=== PATIENT | male | born 1960 | race Caucasian/White ===

== ENCOUNTER 2021-01-06 17:35 | Inpatient (IN) ==
[2021-01-06] MEDS ORDERED: 0.9 % Sodium Chloride 500 ML IVC ONE (18:07)
[2021-01-06] MEDS ORDERED: 0.9 % Sodium Chloride 500 ML ONE (18:08)
[2021-01-06 18:26] LABS: Basophils % 0.5 %; Eosinophils # 0.1 K/mcL (0.0-0.6); Eosinophils % 1.2 %; Hematocrit 46.3 % (37.5-50.1); Hemoglobin 16.8 g/dL (12.9-16.9); Immature Granulocytes % 0.9 % (0-4); Lymphocytes # 1.1 K/mcL (0.6-4.6); Lymphocytes % 16.5 %; Mean Corpuscular HGB Conc 36.3 g/dL (31.6-35.5); Mean Corpuscular Hemoglobin 29.2 pg (28.0-33.3); Mean Corpuscular Volume 80.4 fL (83.0-100.0); Mean Platelet Volume 10.8 fL (9.4-12.4); Monocytes # 0.5 K/mcL (0.0-1.3); Monocytes % 7.5 %; Neutrophils # 4.9 K/mcL (1.6-8.9); Nucleated Red Blood Cells 0.3 /100 WBC (0); Platelet Count 141 K/mcL (140-400); Red Blood Count 5.76 M/mcL (4.19-5.50); Red Cell Distribution Width 13.5 % (11.5-14.5); Segmented Neutrophils % 73.4 %; White Blood Count 6.7 K/mcL (4.3-11.1)
[2021-01-06 18:50] LABS: VBG HCO3 19 mEq/L (21-27); VBG PCO2 30 mmHg (41-51); VBG PH 7.41 pH Units (7.32-7.42); VBG PO2 46 mmHg (25-50)
[2021-01-06 18:57] LABS: Alanine Aminotransferase 152 Units/L (7-52); Albumin 3.8 g/dL (3.5-5.7); Albumin/Globulin Ratio 1.3 (1.1-2.2); Alkaline Phosphatase 425 Units/L (34-104); Aspartate Amino Transferase 144 Units/L (13-39); BUN/Creatinine Ratio 31 (6-26); Bilirubin,Direct 0.3 mg/dL (0.0-0.2); Bilirubin,Total 1.3 mg/dL (0.3-1.0); Blood Urea Nitrogen 26 mg/dL (6-20); Calcium 9.4 mg/dL (8.6-10.3); Carbon Dioxide 20 mEq/L (23-29); Chloride 91 mEq/L (98-107); Globulin 2.9 g/dL (2.4-3.5); Glucose 113 mg/dL (70-105); Magnesium 2.1 mg/dL (1.6-2.6); Osmolality,Calculated 256 (280-300); Sodium 120 mEq/L (136-145); Total Protein 6.7 g/dL (6.4-8.9); Troponin I 0.08 ng/mL (< 0.04); eGFR For African Americans > 60 (> 60); eGFR For Non-African Americans > 60 (> 60)
[2021-01-06] MEDS ORDERED: Piperacillin/Tazobactam 3.375 GM in Water for inj. (sterile) 20 ML IVP ONE (19:16)
[2021-01-06] MEDS ORDERED: Isovue-370 500 ML BOTTLE IVP ONE (19:17)
[2021-01-06] MEDS ORDERED: Vancomycin 1,250 MG/262.5 ML IV.SOLN IVPB ONE (20:00)
[2021-01-06 20:02] LABS: Influenza A PCR Negative (Negative); Influenza B PCR Negative (Negative); Resp. Syncytial Virus PCR Negative (Negative)
[2021-01-06 20:03] LABS: SARS-CoV-2 by PCR (In House) Negative (Negative)
[2021-01-06 20:59] LABS: Bacteria,Urine Few per hpf (None-Few); Bilirubin,Urine Negative (Negative); Blood,Urine Negative (Negative); Clarity,Urine Clear (Clear); Color,Urine Yellow (Yellow); Glucose,Urine (UA) Normal (Normal); Hyaline Casts,Urine Moderate per lpf (None Seen); Ketones,Urine Trace mg/dL (Negative); Leukocyte Esterase,Urine Negative (Negative); Mucus,Urine Few per lpf (None-Few); Nitrite,Urine Negative (Negative); PH,Urine 5.5 pH Units (5.0-8.0); Protein,Urine 30 mg/dL (Neg-Trace); RBC,Urine 0-3 per hpf (0-3); Specific Gravity,Urine 1.029 (1.010-1.025); Squamous Epithelial Cell,Urine Few per hpf (None-Few); Urobilinogen,Urine Normal (Normal); WBC,Urine 0-3 per hpf (0-3)
[2021-01-06 21:02] LABS: Sodium, Urine 62.3 mEq/L
[2021-01-07] MEDS ORDERED: 0.9 % Sodium Chloride 500 ML IVC ONE (00:05)
[2021-01-07] MEDS: *HR* OxyCODONE Immed Rel 5 MG TABLET PO PRN ×3 (00:31→17:53)
[2021-01-07] MEDS: 0.9 % Sodium Chloride 1,000 ML IVC SCH ×3 (00:31→13:51)
[2021-01-07] MEDS ORDERED: Ondansetron 4 MG/2 ML VIAL IVP PRN (07:21)
[2021-01-07] MEDS ORDERED: Naloxone 0.4 MG/ML INJ IVP PRN (07:21)
[2021-01-07] MEDS ORDERED: Ipratropium/Albuterol Neb 3 ML IH PRN (07:24)
[2021-01-07 08:29] LABS: Troponin I 0.07 ng/mL (< 0.04)
[2021-01-07 08:38] LABS: BUN/Creatinine Ratio 27 (6-26); Blood Urea Nitrogen 18 mg/dL (6-20); Calcium 8.8 mg/dL (8.6-10.3); Carbon Dioxide 21 mEq/L (23-29); Chloride 95 mEq/L (98-107); Glucose 87 mg/dL (70-105); Osmolality,Calculated 259 (280-300); Potassium 4.6 mEq/L (3.5-5.1); Sodium 124 mEq/L (136-145); eGFR For African Americans > 60 (> 60); eGFR For Non-African Americans > 60 (> 60)
[2021-01-07] MEDS: *HR* LORazepam 0.5 MG TABLET PO PRN ×2 (11:04→22:00)
[2021-01-07] MEDS: levoFLOXacin 750 MG/150 ML 750 MG/150 ML BAG IVPB SCH (11:05)
[2021-01-07] MEDS: Famotidine 20 MG TABLET PO SCH ×2 (17:53→20:06)
[2021-01-07] MEDS: Nystatin SUSP 5 ML UD.LIQ PO SCH ×3 (17:53→22:50)
[2021-01-07] MEDS: *HR* Heparin 5,000 UNIT/ML VIAL SQ SCH (17:53)
[2021-01-08 00:23] LABS: Troponin I 0.1 ng/mL (< 0.04)
[2021-01-08] MEDS: *HR* OxyCODONE Immed Rel 5 MG TABLET PO PRN ×3 (02:44→21:21)
[2021-01-08] MEDS: 0.9 % Sodium Chloride 1,000 ML IVC SCH ×2 (04:19→06:48)
[2021-01-08 06:15] LABS: Magnesium 1.7 mg/dL (1.6-2.6); Phosphorous 4.1 mg/dL (2.7-4.5)
[2021-01-08] MEDS: *HR* Heparin 5,000 UNIT/ML VIAL SQ SCH ×2 (06:39→19:10)
[2021-01-08] MEDS ORDERED: 0.9 % Sodium Chloride 1,000 ML IV ONE (08:02)
[2021-01-08] MEDS: Famotidine 20 MG TABLET PO SCH ×2 (08:12→19:33)
[2021-01-08] MEDS: levoFLOXacin 750 MG/150 ML 750 MG/150 ML BAG IVPB SCH (08:13)
[2021-01-08] MEDS: Nystatin SUSP 5 ML UD.LIQ PO SCH ×4 (08:13→19:33)
[2021-01-08 09:10] LABS: Basophils % 0.5 %; Eosinophils % 0.9 %; Hematocrit 40.3 % (37.5-50.1); Immature Granulocytes % 1.2 % (0-4); Immature Platelets 9.8 % (1.1-6.1); Lymphocytes # 0.6 K/mcL (0.6-4.6); Lymphocytes % 13.2 %; Mean Corpuscular HGB Conc 34.7 g/dL (31.6-35.5); Mean Corpuscular Hemoglobin 28.5 pg (28.0-33.3); Mean Corpuscular Volume 82.1 fL (83.0-100.0); Mean Platelet Volume 11.4 fL (9.4-12.4); Monocytes # 0.4 K/mcL (0.0-1.3); Monocytes % 8.3 %; Neutrophils # 3.3 K/mcL (1.6-8.9); Red Blood Count 4.91 M/mcL (4.19-5.50); Red Cell Distribution Width 13.6 % (11.5-14.5); Segmented Neutrophils % 75.9 %; White Blood Count 4.3 K/mcL (4.3-11.1)
[2021-01-08 09:19] LABS: BUN/Creatinine Ratio 20 (6-26); Blood Urea Nitrogen 11 mg/dL (6-20); Calcium 8.5 mg/dL (8.6-10.3); Carbon Dioxide 16 mEq/L (23-29); Chloride 95 mEq/L (98-107); Glucose 76 mg/dL (70-105); Magnesium 1.7 mg/dL (1.6-2.6); Osmolality,Calculated 254 (280-300); Phosphorous 3.8 mg/dL (2.7-4.5); Sodium 123 mEq/L (136-145); eGFR For African Americans > 60 (> 60); eGFR For Non-African Americans > 60 (> 60)
[2021-01-08 09:30] LABS: Platelet Count 83 K/mcL (140-400)
[2021-01-08 09:32] LABS: Large Platelets Present (Not Present); Platelet Estimate Decreased (Normal)
[2021-01-08] MEDS ORDERED: Morphine Sulfate 2 MG/ML SYRINGE IVP ONE (11:19)
[2021-01-08 12:21] VITALS: O2SAT 100
[2021-01-08] MEDS: *HR* LORazepam 0.5 MG TABLET PO PRN (22:47)
[2021-01-08 23:04] VITALS: PULSE 107; TEMP 97.9
[2021-01-09 03:12] VITALS: BP 80/16
[2021-01-09] MEDS: *HR* Heparin 5,000 UNIT/ML VIAL SQ SCH (03:33)
[2021-01-09] MEDS: *HR* OxyCODONE Immed Rel 5 MG TABLET PO PRN ×2 (03:35→07:22)
== END 2021-01-09 08:51 | disposition hospice, home (50) | DRG 133 ==
LOC: 2NNU 17:35 → EMEROOARM 17:35 → 2NNU 01-07 10:10
PROVIDERS: ADMIT Internal Medicine; ATTEND Internal Medicine